=== PATIENT | female | born 1955 | race Caucasian/White ===

== ENCOUNTER → 2020-04-20 | Day surgery (SDC) | payer MEDICARE, OTHER ==
[2020-04-15 13:48] LABS: BASOPHILS # (AUTO) 0.1 (0.0-0.1); BASOPHILS % 0.8 % (0.0-1.0); EOSINOPHILS # (AUTO) 0.2 (0.0-0.4); EOSINOPHILS % 2.6 % (0.0-6.0); HEMATOCRIT 40.2 % (34.2-44.1); HEMOGLOBIN 12.4 g/dL (12.0-16.0); LYMPHOCYTES # (AUTO) 3.9 (1.0-3.2); LYMPHOCYTES % 42.2 % (18.0-39.1); MEAN CORPUSCULAR HEMOGLOBIN 29.5 pg (28-32); MEAN CORPUSCULAR HGB CONC 30.8 g/dL (31-35); MEAN CORPUSCULAR VOLUME 95.7 fL (81-99); MONOCYTES % 10.4 % (4.4-11.3); NEUTROPHILS % 43.8 % (38.7-80.0); PLATELET COUNT 252 x10e3/uL (140-360); RED CELL DISTRIBUTION WIDTH 13.4 % (11.7-14.4)
[~2020-04-20] MED LIST: ALPRAZOLAM0.25 M1 PO; AMITRIPTYLINE H75 MG PO; AMLODIPINE BESY10 MG PO; APRISO0.375 GM PO; ASA PO; BACTRIM DS TAB1 EACH PO; BENTYL10 MG PO; CALCIUM PO; CARVEDILOL12.5 MG PO; CLEOCIN HCL150 MG PO; COLESTID1 G PO; DIPHENOXYLATE-1 EACH PO; DYAZIDE 37.5-21 EACH PO; ENOXAPARIN80 MG/0.8 SC; FENTANYL CITRATE/PF 100MCG/2 ML INJ ONE; HUMIRA40 MG/0.1 SC; IRON325 MG PO; LEVAQUIN500 MG PO; LIDOCAINE HCL 2% LOCAL INJ 5 ML SDV VIAL INJ ONE; LIPITOR20 MG PO; LISINOPRIL20 MG PO; LISINOPRIL40 MG; LOMOTIL TABLET1 EACH PO; MECLIZINE HCL12.5 MG PO; MIDAZOLAM HCL 2 MG/2 ML VIAL ONE; NEUDEXTA PO; NORVASC10 MG PO; PANTOPRAZOLE SO40 MG PO; PENTASA500 MG PO; PLAVIX75 MG PO; PROMETHAZINE HC25 M1 PO; PROMETHAZINE12.5 M1 PO; PROPOFOL IV EMULSION 10 MG/ML 20 ML VIAL ONE
[2020-04-20 10:18] VITALS: BP 104/70
== END | disposition home or self-care (01) ==
LOC: OR 06:16
PROVIDERS: ATTEND Internal Medicine Gastroenterology
DX: K50.019 Crohn's disease of small intestine with unspecified complications (principal); K57.30 Diverticulosis of large intestine without perforation or abscess without bleeding; Z98.0 Intestinal bypass and anastomosis status; K21.9 Gastro-esophageal reflux disease without esophagitis; I10 Essential (primary) hypertension; Z01.810 Encounter for preprocedural cardiovascular examination; Z01.812 Encounter for preprocedural laboratory examination; Z11.59 Encounter for screening for other viral diseases; Z68.30 Body mass index [BMI] 30.0-30.9, adult
CPT/HCPCS: 36415; 45378; 85025; 93005; J2001; J2704; U0002; J2250; J3010